=== PATIENT | male | born 1950 | race Caucasian/White ===

== ENCOUNTER 2022-02-13 20:04 | Inpatient (IN) ==
[2022-02-13] MEDS ORDERED: ROCURONIUM 100 MG/10 ML VIAL IV ONE (23:53)
[2022-02-13] MEDS ORDERED: ETOMIDATE 20 MG/10 ML VIAL IV ONE (23:53)
[2022-02-14] MEDS ORDERED: ALBUTEROL/IPRATROPIUM 3 ML NEB RESP TX PRN (00:06)
[2022-02-14] MEDS ORDERED: VANCOMYCIN INJ 1,000 MG in SODIUM CHLORIDE 0.9% 250 ML IV ONE (00:29)
[2022-02-14] MEDS ORDERED: SODIUM CHLORIDE 0.9% 1,000 ML IV ONE (00:30)
[2022-02-14] MEDS ORDERED: METOPROLOL TARTRATE 5 MG/5 ML VIAL IV ONE (00:55)
[2022-02-14] MEDS ORDERED: MEROPENEM 500 MG in SODIUM CHLORIDE 0.9% 100 ML IV SCH (01:00)
[2022-02-14] MEDS ORDERED: ONDANSETRON 4 MG/2 ML VIAL IV PRN (01:11)
[2022-02-14] MEDS ORDERED: MAGNESIUM SULF RIDER 4 GM/100 ML PREMIX IV PRN (01:13)
[2022-02-14 01:32] LABS: Basophils % 0.1 % (0.0-0.8); Hematocrit 29.6 VOL% (42.0-52.0); Hemoglobin 9.2 GM/DL (14.0-18.0); Immature Granulocytes % 0.9 %; Immature Granulocytes Absolute 0.16 #; Lymphocytes # 0.6 10*3/uL (1.4-4.0); Lymphocytes % 3.4 % (21.2-54.2); Mean Corpuscular HGB Conc 31.1 GM/DL (32-36); Mean Corpuscular Volume 92.2 FL (87-102); Mean Platelet Volume 11.3 FL (9.6-12.0); Monocytes % 10.9 % (1.7-12.7); Neutrophils % 84.7 % (38.7-73.9); Platelet Count 198 T/CUMM (130-400); Red Blood Count 3.21 MC/CUMM (3.8-5.5); Red Cell Distribution Width 22.4 % (9.3-17.3); White Blood Count 18.2 T/CUMM (4-12)
[2022-02-14 01:32] LABS: Arterial Base Excess iSTAT -6 MMOL/L (-2.5-2.5); Arterial Bicarbonate iSTAT 19.4 MMOL/L (20-26); Arterial O2 Saturation iSTAT 96 % (95-100); Arterial PCO2 iSTAT 38 MM HG (35-48); Arterial PO2 iSTAT 92 MM HG (80-95); Arterial Total CO2 iSTAT 21 MMO/L (23-27); Arterial pH iSTAT 7.313 (7.35-7.45)
[2022-02-14 01:54] LABS: INR 1.9; Lymphocytes 1 % (20-55); PT Patient Result 19.8 SECS (10.1-12.1); Partial Thromboplastin Time 54.4 SECS (23.7-32.9); Platelet Estimate Adequate; Total Cells Counted 100
[2022-02-14 01:55] LABS: Burr Cells Few
[2022-02-14 01:56] LABS: Polychromasia Slight
[2022-02-14 01:56] LABS: Albumin 1.9 G/DL (3.4-5.0); Bilirubin,Total 4.2 MG/DL (0.20-1.00); Calcium 8.1 MG/DL (8.5-10.1); Osmolality,Calculated 278.2 MOS/KG (273-304); Potassium 3.5 MMOL/L (3.5-5.1); Total Protein 6.9 G/DL (6.4-8.2)
[2022-02-14 01:59] LABS: Lactic Acid 6.8 MMOL/L (0.4-2.0)
[2022-02-14 02:01] LABS: CKMB % 3.09 %
[2022-02-14 02:08] LABS: Bacteria,Urine Occasional /HPF (Few); Bilirubin,Urine Moderate mg/dL (Negative); Blood, Urine Large mg/dL (Negative); Glucose,Urine (UA) Negative (Negative); Hyaline Casts,Urine 11 /LPF (0-3); Ketones,Urine Trace mg/dL (Negative); Mucus,Urine Occasional /LPF (Occasional); Nitrite,Urine Negative (Negative); Protein,Urine 100 mg/dL (Negative); RBC,Urine 897 /HPF (0-4); Squamous Epithelial Cell,Urine Occasional /HPF (0-10); Urine Appearance Clear (Clear); Urine Color Dark Yellow (Yellow); Urine Specific Gravity >= 1.030 (1.001-1.035); Urine pH 5.5 (4.5-8.0)
[2022-02-14] MEDS: MEROPENEM 500 MG in SODIUM CHLORIDE 0.9% 100 ML IV SCH ×3 (02:12→16:55)
[2022-02-14] MEDS: SODIUM CHLORIDE 0.9% 1,000 ML IV SCH ×2 (02:12→12:05)
[2022-02-14 03:23] LABS: Arterial Base Excess iSTAT -5 MMOL/L (-2.5-2.5); Arterial Bicarbonate iSTAT 21.5 MMOL/L (20-26); Arterial O2 Saturation iSTAT 100 % (95-100); Arterial PCO2 iSTAT 45 MM HG (35-48); Arterial PO2 iSTAT 306 MM HG (80-95); Arterial Total CO2 iSTAT 23 MMO/L (23-27); Arterial pH iSTAT 7.291 (7.35-7.45)
[2022-02-14] MEDS ORDERED: VANCOMYCIN INJ 500 MG in SODIUM CHLORIDE 0.9% 100 ML IV PRN (03:25)
[2022-02-14] MEDS ORDERED: VANCOMYCIN INJ 750 MG in SODIUM CHLORIDE 0.9% 250 ML IV ONE (04:00)
[2022-02-14] MEDS: MAGNESIUM SULF RIDER 2 GM/50 ML PREMIX IV PRN (05:08)
[2022-02-14] MEDS ORDERED: PHYTONADIONE 10 MG/1 ML AMP SUBCUT ONE (06:30)
[2022-02-14] MEDS: ALBUTEROL/IPRATROPIUM 3 ML NEB RESP TX SCH ×3 (07:24→19:24)
[2022-02-14] MEDS ORDERED: INSULIN REGULAR 100 UNIT/ML SUBCUT SCH (07:30)
[2022-02-14] MEDS ORDERED: NOREPINEPHRINE 4 MG/4 ML VIAL IV ONE (07:48)
[2022-02-14] MEDS: NOREPINEPHRINE 8 MG in SODIUM CHLORIDE 0.9% 242 ML IV PRN ×2 (07:50→16:25)
[2022-02-14] MEDS ORDERED: LACTATED RINGERS 500 ML IV ONE (07:50)
[2022-02-14] MEDS ORDERED: HYDROCORTISONE 100 MG VIAL IV ONE (07:51)
[2022-02-14 08:31] LABS: Albumin 1.6 G/DL (3.4-5.0); Bilirubin,Total 3.7 MG/DL (0.20-1.00); Calcium 7.7 MG/DL (8.5-10.1); Osmolality,Calculated 282.1 MOS/KG (273-304); Potassium 3.6 MMOL/L (3.5-5.1); Total Protein 5.9 G/DL (6.4-8.2)
[2022-02-14 08:42] LABS: Basophils % 0.1 % (0.0-0.8); Hematocrit 25.3 VOL% (42.0-52.0); Immature Granulocytes % 0.7 %; Immature Granulocytes Absolute 0.09 #; Lymphocytes # 0.6 10*3/uL (1.4-4.0); Lymphocytes % 4.4 % (21.2-54.2); Mean Corpuscular HGB Conc 31.6 GM/DL (32-36); Mean Corpuscular Volume 90.4 FL (87-102); Mean Platelet Volume 11.2 FL (9.6-12.0); Monocytes # 1.3 10*3/uL (0.11-0.8); Monocytes % 9.6 % (1.7-12.7); Neutrophils % 85.2 % (38.7-73.9); Platelet Count 162 T/CUMM (130-400); Red Cell Distribution Width 22.2 % (9.3-17.3); White Blood Count 13.5 T/CUMM (4-12)
[2022-02-14 09:00] LABS: Arterial Base Excess iSTAT -4 MMOL/L (-2.5-2.5); Arterial O2 Saturation iSTAT 96 % (95-100); Arterial PCO2 iSTAT 28 MM HG (35-48); Arterial PO2 iSTAT 74 MM HG (80-95); Arterial Total CO2 iSTAT 20 MMO/L (23-27); Arterial pH iSTAT 7.442 (7.35-7.45)
[2022-02-14 09:02] LABS: Hypochromia Slight; Lymphocytes 1 % (20-55); Microcytosis Slight; Platelet Estimate Adequate; Total Cells Counted 100
[2022-02-14] MEDS: INSULIN REGULAR 100 UNIT/ML SUBCUT SCH ×2 (12:05→18:10)
[2022-02-14] MEDS: HYDROCORTISONE 100 MG VIAL IV SCH ×2 (12:05→16:55)
[2022-02-14] MEDS ORDERED: LACTATED RINGERS 1,000 ML IV ONE (13:37)
[2022-02-14] MEDS: metroNIDAZOLE INJ 500 MG/100 ML PREMIX IV SCH ×2 (14:00→21:55)
[2022-02-14 16:22] LABS: Osmolality,Calculated 285.8 MOS/KG (273-304); Potassium 3.4 MMOL/L (3.5-5.1)
[2022-02-14] MEDS: ENOXAPARIN 80 MG/0.8 ML SYRINGE SUBCUT SCH (18:10)
[2022-02-14] MEDS: SODIUM BICARB INJ 100 MEQ in STERILE WATER INJ 1,000 ML IV SCH (18:10)
[2022-02-14] MEDS: FAMOTIDINE 20 MG TABLET PO SCH ×2 (18:15→21:55)
[2022-02-14] MEDS: ZINC OXIDE PASTE 113 GM TUBE TOP SCH (21:08)
[2022-02-15] MEDS: ALBUTEROL/IPRATROPIUM 3 ML NEB RESP TX SCH ×4 (00:11→19:22)
[2022-02-15] MEDS: HYDROCORTISONE 100 MG VIAL IV SCH ×4 (01:08→18:10)
[2022-02-15] MEDS: INSULIN REGULAR 100 UNIT/ML SUBCUT SCH ×4 (01:08→18:10)
[2022-02-15] MEDS: MEROPENEM 500 MG in SODIUM CHLORIDE 0.9% 100 ML IV SCH ×3 (01:09→16:15)
[2022-02-15] MEDS: SODIUM BICARB INJ 100 MEQ in STERILE WATER INJ 1,000 ML IV SCH (01:26)
[2022-02-15] MEDS: NOREPINEPHRINE 8 MG in SODIUM CHLORIDE 0.9% 242 ML IV PRN (01:40)
[2022-02-15] MEDS: FAMOTIDINE 20 MG TABLET PO SCH (02:31)
[2022-02-15 04:07] LABS: Hematocrit 20.8 VOL% (42.0-52.0); Hemoglobin 6.9 GM/DL (14.0-18.0); Immature Granulocytes % 0.7 %; Immature Granulocytes Absolute 0.06 #; Lymphocytes # 0.3 10*3/uL (1.4-4.0); Lymphocytes % 3.2 % (21.2-54.2); Mean Corpuscular HGB Conc 33.2 GM/DL (32-36); Mean Platelet Volume 10.7 FL (9.6-12.0); Monocytes # 0.8 10*3/uL (0.11-0.8); Monocytes % 8.6 % (1.7-12.7); Neutrophils % 87.5 % (38.7-73.9); Platelet Count 148 T/CUMM (130-400); Red Blood Count 2.39 MC/CUMM (3.8-5.5); Red Cell Distribution Width 22.1 % (9.3-17.3); White Blood Count 8.9 T/CUMM (4-12)
[2022-02-15 04:14] LABS: INR 1.9; PT Patient Result 19.8 SECS (10.1-12.1)
[2022-02-15 04:33] LABS: Albumin 1.6 G/DL (3.4-5.0); Bilirubin,Total 4.5 MG/DL (0.20-1.00); Calcium 7.2 MG/DL (8.5-10.1); Osmolality,Calculated 278.2 MOS/KG (273-304); Potassium 2.7 MMOL/L (3.5-5.1); Total Protein 5.5 G/DL (6.4-8.2)
[2022-02-15] MEDS ORDERED: POTASSIUM BICARB EFFERVESCENT 20 MEQ TAB.EFF PER TUBE PRN (04:47)
[2022-02-15] MEDS ORDERED: POTASSIUM CHLORIDE RIDER 10 MEQ/100 ML PREMIX IV ONE (05:02)
[2022-02-15] MEDS: POTASSIUM CHLORIDE RIDER 10 MEQ/100 ML PREMIX IV PRN ×5 (05:07→09:05)
[2022-02-15] MEDS: metroNIDAZOLE INJ 500 MG/100 ML PREMIX IV SCH ×3 (05:31→21:56)
[2022-02-15] MEDS: ENOXAPARIN 80 MG/0.8 ML SYRINGE SUBCUT SCH (05:32)
[2022-02-15 06:06] LABS: Arterial Base Excess iSTAT 5 MMOL/L (-2.5-2.5); Arterial Bicarbonate iSTAT 26.4 MMOL/L (20-26); Arterial O2 Saturation iSTAT 100 % (95-100); Arterial PCO2 iSTAT 24 MM HG (35-48); Arterial PO2 iSTAT 236 MM HG (80-95); Arterial Total CO2 iSTAT 27 MMO/L (23-27); Arterial pH iSTAT 7.648 (7.35-7.45)
[2022-02-15] MEDS ORDERED: SODIUM CHLORIDE 0.9% 1,000 ML IV PRN (06:23)
[2022-02-15] MEDS: DEXTROSE 5% NACL 0.45% 1,000 ML IV SCH (07:15)
[2022-02-15] MEDS: POTASSIUM CHLORIDE 20 MEQ TABLET PO SCH ×4 (09:10→20:19)
[2022-02-15] MEDS: ASPIRIN EC 81 MG TABLET PO SCH (09:10)
[2022-02-15] MEDS: ZINC OXIDE PASTE 113 GM TUBE TOP SCH ×2 (09:45→20:19)
[2022-02-15] MEDS: VANCOMYCIN INJ 1,500 MG in SODIUM CHLORIDE 0.9% 500 ML IV SCH (10:20)
[2022-02-15 11:43] LABS: Arterial Base Excess iSTAT 2 MMOL/L (-2.5-2.5); Arterial Bicarbonate iSTAT 24.7 MMOL/L (20-26); Arterial O2 Saturation iSTAT 100 % (95-100); Arterial PCO2 iSTAT 31 MM HG (35-48); Arterial PO2 iSTAT 175 MM HG (80-95); Arterial Total CO2 iSTAT 26 MMO/L (23-27); Arterial pH iSTAT 7.509 (7.35-7.45)
[2022-02-15 13:11] LABS: Calcium 6.8 MG/DL (8.5-10.1)
[2022-02-15] MEDS ORDERED: MAGNESIUM SULF RIDER 4 GM/100 ML PREMIX IV ONE (13:51)
[2022-02-15] MEDS ORDERED: CALCIUM GLUCONATE RIDER 2,000 MG/100 ML PREMIX IV ONE (13:52)
[2022-02-15 17:41] LABS: Potassium 3.5 MMOL/L (3.5-5.1)
[2022-02-16] MEDS: ALBUTEROL/IPRATROPIUM 3 ML NEB RESP TX SCH ×4 (00:05→19:02)
[2022-02-16] MEDS: INSULIN REGULAR 100 UNIT/ML SUBCUT SCH ×4 (00:10→17:37)
[2022-02-16] MEDS: HYDROCORTISONE 100 MG VIAL IV SCH ×4 (00:11→21:07)
[2022-02-16] MEDS: MEROPENEM 500 MG in SODIUM CHLORIDE 0.9% 100 ML IV SCH ×3 (00:12→16:38)
[2022-02-16] MEDS: POTASSIUM CHLORIDE 20 MEQ TABLET PO SCH ×3 (00:12→18:15)
[2022-02-16] MEDS: DEXTROSE 5% NACL 0.45% 1,000 ML IV SCH (03:13)
[2022-02-16 04:31] LABS: Basophils % 0.2 % (0.0-0.8); Hematocrit 25.4 VOL% (42.0-52.0); Hemoglobin 8.2 GM/DL (14.0-18.0); Immature Granulocytes % 0.8 %; Immature Granulocytes Absolute 0.09 #; Lymphocytes # 0.3 10*3/uL (1.4-4.0); Lymphocytes % 2.9 % (21.2-54.2); Mean Corpuscular HGB Conc 32.3 GM/DL (32-36); Mean Corpuscular Volume 88.2 FL (87-102); Mean Platelet Volume 11.4 FL (9.6-12.0); Neutrophils % 87.1 % (38.7-73.9); Platelet Count 141 T/CUMM (130-400); Red Blood Count 2.88 MC/CUMM (3.8-5.5); Red Cell Distribution Width 21.2 % (9.3-17.3); White Blood Count 11.2 T/CUMM (4-12)
[2022-02-16 04:59] LABS: Albumin 1.7 G/DL (3.4-5.0); Bilirubin,Total 4.8 MG/DL (0.20-1.00); Calcium 7.9 MG/DL (8.5-10.1); Hypochromia Slight; Lymphocytes 2 % (20-55); Microcytosis Slight; Osmolality,Calculated 288.8 MOS/KG (273-304); Platelet Estimate Adequate; Potassium 4.1 MMOL/L (3.5-5.1); Total Cells Counted 100; Total Protein 5.9 G/DL (6.4-8.2)
[2022-02-16 05:29] LABS: Arterial Base Excess iSTAT 1 MMOL/L (-2.5-2.5); Arterial Bicarbonate iSTAT 24.3 MMOL/L (20-26); Arterial O2 Saturation iSTAT 100 % (95-100); Arterial PCO2 iSTAT 29 MM HG (35-48); Arterial PO2 iSTAT 150 MM HG (80-95); Arterial Total CO2 iSTAT 25 MMO/L (23-27); Arterial pH iSTAT 7.539 (7.35-7.45)
[2022-02-16] MEDS: metroNIDAZOLE INJ 500 MG/100 ML PREMIX IV SCH ×3 (06:00→21:04)
[2022-02-16] MEDS: POTASSIUM CHLORIDE RIDER 10 MEQ/100 ML PREMIX IV PRN (06:01)
[2022-02-16] MEDS ORDERED: FUROSEMIDE 40 MG/4 ML VIAL IV ONE ×2 (07:22→21:00)
[2022-02-16] MEDS: ZINC OXIDE PASTE 113 GM TUBE TOP SCH ×2 (08:14→21:05)
[2022-02-16] MEDS: ASPIRIN EC 81 MG TABLET PO SCH (08:14)
[2022-02-16] MEDS: INSULIN GLARGINE 100 UNIT/ML SUBCUT SCH ×2 (08:43→08:44)
[2022-02-16] MEDS: NOREPINEPHRINE 8 MG in SODIUM CHLORIDE 0.9% 242 ML IV PRN (08:44)
[2022-02-16] MEDS: MORPHINE 2 MG/1 ML SYRINGE IV PRN ×2 (09:05→13:22)
[2022-02-16] MEDS: VANCOMYCIN INJ 1,500 MG in SODIUM CHLORIDE 0.9% 500 ML IV SCH (11:13)
[2022-02-16] MEDS: METOCLOPRAMIDE 10 MG/2 ML VIAL IV SCH ×2 (11:55→17:36)
[2022-02-16] MEDS: PANTOPRAZOLE 40 MG VIAL IV SCH (13:22)
[2022-02-16 13:35] LABS: Calcium 8.1 MG/DL (8.5-10.1); Osmolality,Calculated 282.8 MOS/KG (273-304); Phosphorous 1.5 MG/DL (2.5-4.9); Potassium 3.7 MMOL/L (3.5-5.1)
[2022-02-16 14:59] LABS: Arterial Base Excess iSTAT 4 MMOL/L (-2.5-2.5); Arterial Bicarbonate iSTAT 27.4 MMOL/L (20-26); Arterial O2 Saturation iSTAT 99 % (95-100); Arterial PCO2 iSTAT 35 MM HG (35-48); Arterial PO2 iSTAT 149 MM HG (80-95); Arterial Total CO2 iSTAT 28 MMO/L (23-27); Arterial pH iSTAT 7.508 (7.35-7.45)
[2022-02-16] MEDS: POTASSIUM PHOSPHATE 30 MMOL in SODIUM CHLORIDE 0.9% 250 ML IV SCH ×2 (15:41→21:43)
[2022-02-16] MEDS: LEVOFLOXACIN 750 MG TABLET PER TUBE SCH (18:14)
[2022-02-16] MEDS: VANCOMYCIN 50 MG/ML 60 ML/BOTTLE PO SCH (21:43)
[2022-02-17] MEDS: ALBUTEROL/IPRATROPIUM 3 ML NEB RESP TX SCH ×4 (00:02→19:07)
[2022-02-17] MEDS: METOCLOPRAMIDE 10 MG/2 ML VIAL IV SCH ×5 (00:46→23:49)
[2022-02-17] MEDS: INSULIN REGULAR 100 UNIT/ML SUBCUT SCH ×5 (00:46→23:52)
[2022-02-17] MEDS: VANCOMYCIN 50 MG/ML 60 ML/BOTTLE PO SCH ×4 (03:24→20:27)
[2022-02-17 03:34] LABS: Arterial Base Excess iSTAT 3 MMOL/L (-2.5-2.5); Arterial Bicarbonate iSTAT 27.6 MMOL/L (20-26); Arterial O2 Saturation iSTAT 99 % (95-100); Arterial PCO2 iSTAT 40 MM HG (35-48); Arterial PO2 iSTAT 122 MM HG (80-95); Arterial Total CO2 iSTAT 29 MMO/L (23-27); Arterial pH iSTAT 7.449 (7.35-7.45)
[2022-02-17 05:26] LABS: Basophils % 0.2 % (0.0-0.8); Hematocrit 23.8 VOL% (42.0-52.0); Hemoglobin 7.6 GM/DL (14.0-18.0); Immature Granulocytes % 1.9 %; Immature Granulocytes Absolute 0.19 #; Lymphocytes # 0.4 10*3/uL (1.4-4.0); Lymphocytes % 3.9 % (21.2-54.2); Mean Corpuscular HGB Conc 31.9 GM/DL (32-36); Mean Corpuscular Volume 89.5 FL (87-102); Mean Platelet Volume 11.1 FL (9.6-12.0); Platelet Count 109 T/CUMM (130-400); Red Blood Count 2.66 MC/CUMM (3.8-5.5); Red Cell Distribution Width 21.1 % (9.3-17.3); White Blood Count 10.2 T/CUMM (4-12)
[2022-02-17 05:41] LABS: INR 1.5; PT Patient Result 16.3 SECS (10.1-12.1); Partial Thromboplastin Time 40.8 SECS (23.7-32.9)
[2022-02-17] MEDS: metroNIDAZOLE INJ 500 MG/100 ML PREMIX IV SCH ×3 (05:52→21:03)
[2022-02-17 05:53] LABS: Albumin 1.6 G/DL (3.4-5.0); Bilirubin,Total 3.8 MG/DL (0.20-1.00); Calcium 7.9 MG/DL (8.5-10.1); Osmolality,Calculated 289.5 MOS/KG (273-304); Potassium 4.7 MMOL/L (3.5-5.1)
[2022-02-17 05:53] LABS: Hypochromia Slight; Lymphocytes 1 % (20-55); Total Cells Counted 100
[2022-02-17 05:54] LABS: Microcytosis Slight; Ovalocytes Slight; Polychromasia Slight; Target Cells Slight
[2022-02-17] MEDS ORDERED: SODIUM CHLORIDE 0.9% 1,000 ML IV PRN (06:30)
[2022-02-17] MEDS: ZINC OXIDE PASTE 113 GM TUBE TOP SCH ×2 (08:05→20:27)
[2022-02-17] MEDS: PANTOPRAZOLE 40 MG VIAL IV SCH (08:31)
[2022-02-17] MEDS: ASPIRIN EC 81 MG TABLET PO SCH (08:31)
[2022-02-17] MEDS ORDERED: FUROSEMIDE 40 MG/4 ML VIAL IV SCH (09:00)
[2022-02-17] MEDS: MORPHINE 2 MG/1 ML SYRINGE IV PRN ×2 (09:06→12:31)
[2022-02-17] MEDS: HYDROCORTISONE 100 MG VIAL IV SCH ×2 (09:28→20:23)
[2022-02-17] MEDS: INSULIN GLARGINE 100 UNIT/ML SUBCUT SCH (09:28)
[2022-02-17] MEDS: LEVOFLOXACIN 750 MG TABLET PER TUBE SCH (17:29)
[2022-02-18] MEDS: ALBUTEROL/IPRATROPIUM 3 ML NEB RESP TX SCH ×4 (00:07→19:25)
[2022-02-18] MEDS: VANCOMYCIN 50 MG/ML 60 ML/BOTTLE PO SCH ×4 (03:03→21:14)
[2022-02-18 03:41] LABS: Arterial Base Excess iSTAT 6 MMOL/L (-2.5-2.5); Arterial Bicarbonate iSTAT 29.9 MMOL/L (20-26); Arterial O2 Saturation iSTAT 99 % (95-100); Arterial PCO2 iSTAT 41 MM HG (35-48); Arterial PO2 iSTAT 132 MM HG (80-95); Arterial Total CO2 iSTAT 31 MMO/L (23-27); Arterial pH iSTAT 7.471 (7.35-7.45)
[2022-02-18 04:43] LABS: Basophils % 0.2 % (0.0-0.8); Hemoglobin 9.6 GM/DL (14.0-18.0); Immature Granulocytes % 4.4 %; Immature Granulocytes Absolute 0.44 #; Lymphocytes # 0.3 10*3/uL (1.4-4.0); Lymphocytes % 3.1 % (21.2-54.2); Mean Corpuscular Volume 90.4 FL (87-102); Mean Platelet Volume 11.4 FL (9.6-12.0); Monocytes # 1.2 10*3/uL (0.11-0.8); Monocytes % 11.7 % (1.7-12.7); Neutrophils % 80.6 % (38.7-73.9); Platelet Count 86 T/CUMM (130-400); Red Blood Count 3.32 MC/CUMM (3.8-5.5); Red Cell Distribution Width 19.9 % (9.3-17.3)
[2022-02-18 04:47] LABS: Albumin 1.7 G/DL (3.4-5.0); Bilirubin,Total 3.6 MG/DL (0.20-1.00); Calcium 8.1 MG/DL (8.5-10.1); Osmolality,Calculated 297.1 MOS/KG (273-304); Potassium 4.4 MMOL/L (3.5-5.1); Total Protein 6.3 G/DL (6.4-8.2)
[2022-02-18 04:50] LABS: High Sensitive Troponin I* 5144.7 ng/L (0-78)
[2022-02-18] MEDS: metroNIDAZOLE INJ 500 MG/100 ML PREMIX IV SCH ×3 (05:02→21:00)
[2022-02-18 05:12] LABS: Lymphocytes 3 % (20-55); Total Cells Counted 100
[2022-02-18 05:13] LABS: Platelet Estimate Decreased
[2022-02-18] MEDS: INSULIN REGULAR 100 UNIT/ML SUBCUT SCH ×3 (06:22→17:50)
[2022-02-18] MEDS: METOCLOPRAMIDE 10 MG/2 ML VIAL IV SCH ×3 (06:25→17:50)
[2022-02-18] MEDS: MAGNESIUM SULF RIDER 2 GM/50 ML PREMIX IV PRN (07:05)
[2022-02-18] MEDS: ALBUTEROL 2.5 MG/3 ML NEB RESP TX PRN ×2 (07:33→13:35)
[2022-02-18] MEDS: ZINC OXIDE PASTE 113 GM TUBE TOP SCH ×2 (07:40→21:25)
[2022-02-18] MEDS: FUROSEMIDE 40 MG/4 ML VIAL IV SCH ×2 (08:35→15:50)
[2022-02-18] MEDS: PANTOPRAZOLE 40 MG VIAL IV SCH (08:35)
[2022-02-18] MEDS: HYDROCORTISONE 100 MG VIAL IV SCH ×2 (08:35→20:59)
[2022-02-18] MEDS: INSULIN GLARGINE 100 UNIT/ML SUBCUT SCH (09:25)
[2022-02-18] MEDS: LEVOFLOXACIN 750 MG TABLET PER TUBE SCH (17:50)
[2022-02-18] MEDS ORDERED: IPRATROPIUM 500 MCG/2.5 ML NEB RESP TX ONE (19:10)
[2022-02-19] MEDS: INSULIN REGULAR 100 UNIT/ML SUBCUT SCH ×5 (00:05→21:46)
[2022-02-19] MEDS ORDERED: IPRATROPIUM 500 MCG/2.5 ML NEB RESP TX ONE ×3 (00:05→19:09)
[2022-02-19] MEDS: ALBUTEROL/IPRATROPIUM 3 ML NEB RESP TX SCH ×4 (00:18→19:20)
[2022-02-19] MEDS: METOCLOPRAMIDE 10 MG/2 ML VIAL IV SCH ×4 (01:38→18:30)
[2022-02-19] MEDS: VANCOMYCIN 50 MG/ML 60 ML/BOTTLE PO SCH ×4 (03:40→21:46)
[2022-02-19 03:57] LABS: Arterial Base Excess iSTAT 10 MMOL/L (-2.5-2.5); Arterial Bicarbonate iSTAT 34.6 MMOL/L (20-26); Arterial O2 Saturation iSTAT 99 % (95-100); Arterial PCO2 iSTAT 44 MM HG (35-48); Arterial PO2 iSTAT 128 MM HG (80-95); Arterial Total CO2 iSTAT 36 MMO/L (23-27)
[2022-02-19 05:08] LABS: Basophils % 0.4 % (0.0-0.8); Eosinophils % 0.2 % (0.00-10.9); Hematocrit 33.8 VOL% (42.0-52.0); Hemoglobin 10.7 GM/DL (14.0-18.0); Immature Granulocytes % 5.4 %; Immature Granulocytes Absolute 0.59 #; Lymphocytes # 0.3 10*3/uL (1.4-4.0); Lymphocytes % 2.7 % (21.2-54.2); Mean Corpuscular HGB Conc 31.7 GM/DL (32-36); Mean Corpuscular Volume 91.1 FL (87-102); Mean Platelet Volume 12.6 FL (9.6-12.0); Monocytes # 1.1 10*3/uL (0.11-0.8); Neutrophils % 81.3 % (38.7-73.9); Red Blood Count 3.71 MC/CUMM (3.8-5.5); Red Cell Distribution Width 20.5 % (9.3-17.3)
[2022-02-19 05:09] LABS: Platelet Count 83 T/CUMM (130-400)
[2022-02-19 05:30] LABS: Albumin 1.8 G/DL (3.4-5.0); Calcium 8.4 MG/DL (8.5-10.1); Osmolality,Calculated 304.7 MOS/KG (273-304); Potassium 3.9 MMOL/L (3.5-5.1)
[2022-02-19] MEDS: metroNIDAZOLE INJ 500 MG/100 ML PREMIX IV SCH ×3 (05:45→21:45)
[2022-02-19 06:33] LABS: Hypochromia Slight; Lymphocytes 4 % (20-55); Ovalocytes Slight; Platelet Estimate Decreased; Total Cells Counted 100
[2022-02-19] MEDS: HYDROCORTISONE 100 MG VIAL IV SCH (07:30)
[2022-02-19] MEDS: FUROSEMIDE 40 MG/4 ML VIAL IV SCH (07:30)
[2022-02-19] MEDS: PANTOPRAZOLE 40 MG VIAL IV SCH (07:35)
[2022-02-19] MEDS: ZINC OXIDE PASTE 113 GM TUBE TOP SCH ×2 (07:45→21:46)
[2022-02-19] MEDS: POTASSIUM CHLORIDE 20 MEQ TABLET PO SCH ×3 (07:55→16:55)
[2022-02-19] MEDS ORDERED: DIGOXIN 0.5 MG/2 ML AMP IV ONE ×2 (08:24→08:50)
[2022-02-19] MEDS: INSULIN GLARGINE 100 UNIT/ML SUBCUT SCH (08:45)
[2022-02-19] MEDS: ENOXAPARIN 80 MG/0.8 ML SYRINGE SUBCUT SCH ×2 (09:15→21:45)
[2022-02-19] MEDS ORDERED: AMIODARONE INJ 150 MG in DEXTROSE 5% 100 ML IV ONE (10:18)
[2022-02-19] MEDS ORDERED: PHENOL 1.4% THROAT SPRAY 177 ML BOTTLE PO PRN (10:20)
[2022-02-19] MEDS ORDERED: NOREPINEPHRINE DRIP 8 MG/250 ML PREMIX IV PRN (11:35)
[2022-02-19] MEDS ORDERED: NOREPINEPHRINE 8 MG in SODIUM CHLORIDE 0.9% 242 ML IV PRN (11:37)
[2022-02-19] MEDS ORDERED: AMIODARONE INJ 450 MG in DEXTROSE 5% 241 ML IV SCH ×2 (12:00→18:00)
[2022-02-19] MEDS: LEVOFLOXACIN 750 MG TABLET PER TUBE SCH (18:30)
[2022-02-19] MEDS ORDERED: HYDROCORTISONE 100 MG VIAL IV SCH (21:00)
[2022-02-20] MEDS: ALBUTEROL/IPRATROPIUM 3 ML NEB RESP TX SCH ×5 (00:43→23:57)
[2022-02-20] MEDS: METOCLOPRAMIDE 10 MG/2 ML VIAL IV SCH ×5 (00:58→23:49)
[2022-02-20] MEDS: VANCOMYCIN 50 MG/ML 60 ML/BOTTLE PO SCH ×3 (03:14→21:26)
[2022-02-20 03:47] LABS: Basophils % 0.2 % (0.0-0.8); Hematocrit 36.8 VOL% (42.0-52.0); Hemoglobin 11.6 GM/DL (14.0-18.0); Immature Granulocytes % 2.8 %; Immature Granulocytes Absolute 0.37 #; Lymphocytes # 0.4 10*3/uL (1.4-4.0); Lymphocytes % 3.3 % (21.2-54.2); Mean Corpuscular HGB Conc 31.5 GM/DL (32-36); Mean Corpuscular Volume 92.2 FL (87-102); Mean Platelet Volume 11.3 FL (9.6-12.0); Monocytes # 1.3 10*3/uL (0.11-0.8); Monocytes % 9.6 % (1.7-12.7); Neutrophils % 84.1 % (38.7-73.9); Platelet Count 90 T/CUMM (130-400); Red Blood Count 3.99 MC/CUMM (3.8-5.5); Red Cell Distribution Width 20.9 % (9.3-17.3); White Blood Count 13.1 T/CUMM (4-12)
[2022-02-20 04:02] LABS: Albumin 1.8 G/DL (3.4-5.0); Bilirubin,Total 4.2 MG/DL (0.20-1.00); Calcium 9.3 MG/DL (8.5-10.1); Osmolality,Calculated 303.4 MOS/KG (273-304); Potassium 4.8 MMOL/L (3.5-5.1); Total Protein 6.8 G/DL (6.4-8.2)
[2022-02-20 04:08] LABS: Hypochromia Slight; Lymphocytes 3 % (20-55); Platelet Estimate Decreased; Total Cells Counted 100
[2022-02-20 04:09] LABS: Target Cells Slight
[2022-02-20 04:14] LABS: Arterial Base Excess iSTAT 10 MMOL/L (-2.5-2.5); Arterial Bicarbonate iSTAT 33.6 MMOL/L (20-26); Arterial O2 Saturation iSTAT 97 % (95-100); Arterial PCO2 iSTAT 42 MM HG (35-48); Arterial PO2 iSTAT 86 MM HG (80-95); Arterial Total CO2 iSTAT 35 MMO/L (23-27); Arterial pH iSTAT 7.507 (7.35-7.45)
[2022-02-20] MEDS: metroNIDAZOLE INJ 500 MG/100 ML PREMIX IV SCH (05:45)
[2022-02-20] MEDS ORDERED: DIGOXIN 0.5 MG/2 ML AMP IV ONE (07:36)
[2022-02-20] MEDS: INSULIN REGULAR 100 UNIT/ML SUBCUT SCH ×4 (08:19→20:08)
[2022-02-20] MEDS: HYDROCORTISONE 10 MG TABLET PO SCH ×2 (08:22→21:26)
[2022-02-20] MEDS: PANTOPRAZOLE 40 MG VIAL IV SCH (08:22)
[2022-02-20] MEDS: METOPROLOL TARTRATE 25 MG TABLET PO SCH ×2 (08:22→21:26)
[2022-02-20] MEDS: ENOXAPARIN 80 MG/0.8 ML SYRINGE SUBCUT SCH ×2 (08:23→21:27)
[2022-02-20] MEDS: ZINC OXIDE PASTE 113 GM TUBE TOP SCH ×2 (08:23→21:27)
[2022-02-20] MEDS: SPIRONOLACTONE 100 MG TABLET PO SCH (09:40)
[2022-02-20] MEDS: INSULIN GLARGINE 100 UNIT/ML SUBCUT SCH (09:40)
[2022-02-20] MEDS: FUROSEMIDE 40 MG/4 ML VIAL IV SCH (09:41)
[2022-02-20] MEDS: LEVOFLOXACIN 750 MG TABLET PER TUBE SCH (19:10)
[2022-02-21] MEDS: VANCOMYCIN 50 MG/ML 60 ML/BOTTLE PO SCH ×3 (02:02→17:42)
[2022-02-21 03:20] LABS: Basophils % 0.1 % (0.0-0.8); Hematocrit 38.7 VOL% (42.0-52.0); Hemoglobin 11.9 GM/DL (14.0-18.0); Immature Granulocytes % 1.9 %; Immature Granulocytes Absolute 0.27 #; Lymphocytes # 0.5 10*3/uL (1.4-4.0); Lymphocytes % 3.6 % (21.2-54.2); Mean Corpuscular HGB Conc 30.7 GM/DL (32-36); Mean Corpuscular Volume 94.4 FL (87-102); Mean Platelet Volume 12.1 FL (9.6-12.0); Monocytes # 1.2 10*3/uL (0.11-0.8); Monocytes % 8.4 % (1.7-12.7); Platelet Count 88 T/CUMM (130-400); Red Cell Distribution Width 21.1 % (9.3-17.3); White Blood Count 14.6 T/CUMM (4-12)
[2022-02-21 03:31] LABS: Osmolality,Calculated 308.4 MOS/KG (273-304); Potassium 4.1 MMOL/L (3.5-5.1)
[2022-02-21 03:51] LABS: Lymphocytes 2 % (20-55); Platelet Estimate Decreased; Total Cells Counted 100
[2022-02-21] MEDS: METOCLOPRAMIDE 10 MG/2 ML VIAL IV SCH ×3 (05:15→17:42)
[2022-02-21] MEDS: ALBUTEROL/IPRATROPIUM 3 ML NEB RESP TX SCH ×2 (07:04→12:24)
[2022-02-21] MEDS: ENOXAPARIN 80 MG/0.8 ML SYRINGE SUBCUT SCH ×2 (08:10→21:34)
[2022-02-21] MEDS: METOPROLOL TARTRATE 25 MG TABLET PO SCH ×2 (08:10→21:34)
[2022-02-21] MEDS: HYDROCORTISONE 10 MG TABLET PO SCH ×2 (08:10→21:34)
[2022-02-21] MEDS: SPIRONOLACTONE 100 MG TABLET PO SCH (08:10)
[2022-02-21] MEDS: FUROSEMIDE 40 MG/4 ML VIAL IV SCH (08:10)
[2022-02-21] MEDS: ZINC OXIDE PASTE 113 GM TUBE TOP SCH ×2 (08:11→22:04)
[2022-02-21] MEDS: PANTOPRAZOLE 40 MG VIAL IV SCH (08:11)
[2022-02-21] MEDS: INSULIN GLARGINE 100 UNIT/ML SUBCUT SCH (08:23)
[2022-02-21] MEDS: INSULIN REGULAR 100 UNIT/ML SUBCUT SCH ×4 (08:24→22:02)
[2022-02-21] MEDS: IPRATROPIUM 500 MCG/2.5 ML NEB RESP TX SCH ×2 (14:39→23:20)
[2022-02-21] MEDS: LEVALBUTEROL 1.25 MG/3 ML NEB RESP TX SCH ×2 (14:39→23:20)
[2022-02-22] MEDS: METOCLOPRAMIDE 10 MG/2 ML VIAL IV SCH ×5 (00:53→23:53)
[2022-02-22] MEDS: VANCOMYCIN 50 MG/ML 60 ML/BOTTLE PO SCH ×4 (00:54→18:11)
[2022-02-22 04:54] LABS: Basophils % 0.1 % (0.0-0.8); Eosinophils % 0.1 % (0.00-10.9); Hematocrit 37.2 VOL% (42.0-52.0); Hemoglobin 11.7 GM/DL (14.0-18.0); Immature Granulocytes % 1.4 %; Lymphocytes # 0.4 10*3/uL (1.4-4.0); Lymphocytes % 2.5 % (21.2-54.2); Mean Corpuscular HGB Conc 31.5 GM/DL (32-36); Mean Corpuscular Volume 94.4 FL (87-102); Mean Platelet Volume 12.5 FL (9.6-12.0); Monocytes # 1.1 10*3/uL (0.11-0.8); Monocytes % 8.1 % (1.7-12.7); NRBC # 0.02 10*3/uL; Neutrophils % 87.8 % (38.7-73.9); Platelet Count 75 T/CUMM (130-400); Red Blood Count 3.94 MC/CUMM (3.8-5.5); Red Cell Distribution Width 21.1 % (9.3-17.3); White Blood Count 13.9 T/CUMM (4-12)
[2022-02-22 05:15] LABS: Potassium 3.5 MMOL/L (3.5-5.1)
[2022-02-22 05:16] LABS: Calcium 8.7 MG/DL (8.5-10.1)
[2022-02-22 05:18] LABS: Lymphocytes 3 % (20-55); Platelet Estimate Decreased; Total Cells Counted 100
[2022-02-22] MEDS: IPRATROPIUM 500 MCG/2.5 ML NEB RESP TX SCH ×3 (06:55→22:47)
[2022-02-22] MEDS: LEVALBUTEROL 1.25 MG/3 ML NEB RESP TX SCH ×3 (06:55→22:47)
[2022-02-22] MEDS: SODIUM CHLORIDE 0.45% 1,000 ML IV SCH ×2 (08:28→21:00)
[2022-02-22] MEDS: HYDROCORTISONE 10 MG TABLET PO SCH ×2 (08:29→21:05)
[2022-02-22] MEDS: FUROSEMIDE 40 MG TABLET PO SCH (08:29)
[2022-02-22] MEDS: ENOXAPARIN 80 MG/0.8 ML SYRINGE SUBCUT SCH (08:29)
[2022-02-22] MEDS: FAMOTIDINE 20 MG TABLET PO SCH ×2 (08:29→21:05)
[2022-02-22] MEDS: METOPROLOL TARTRATE 25 MG TABLET PO SCH ×2 (08:29→20:25)
[2022-02-22] MEDS: INSULIN GLARGINE 100 UNIT/ML SUBCUT SCH (08:42)
[2022-02-22] MEDS: INSULIN REGULAR 100 UNIT/ML SUBCUT SCH ×4 (08:42→21:05)
[2022-02-22] MEDS: ZINC OXIDE PASTE 113 GM TUBE TOP SCH ×2 (08:42→21:05)
[2022-02-22 13:19] LABS: INR 1.9; PT Patient Result 19.7 SECS (10.1-12.1)
[2022-02-22] MEDS: VANCOMYCIN 125 MG CAPSULE PO SCH ×2 (18:17→23:54)
[2022-02-23] MEDS: METOCLOPRAMIDE 10 MG/2 ML VIAL IV SCH ×3 (05:47→17:04)
[2022-02-23] MEDS: VANCOMYCIN 125 MG CAPSULE PO SCH ×3 (05:47→21:17)
[2022-02-23 06:20] LABS: Basophils % 0.1 % (0.0-0.8); Eosinophils % 0.1 % (0.00-10.9); Hematocrit 38.6 VOL% (42.0-52.0); Hemoglobin 12.1 GM/DL (14.0-18.0); Immature Granulocytes % 2.3 %; Immature Granulocytes Absolute 0.39 #; Lymphocytes # 0.6 10*3/uL (1.4-4.0); Lymphocytes % 3.8 % (21.2-54.2); Mean Corpuscular HGB Conc 31.3 GM/DL (32-36); Mean Corpuscular Volume 96.5 FL (87-102); Mean Platelet Volume 13.3 FL (9.6-12.0); Monocytes # 1.6 10*3/uL (0.11-0.8); Monocytes % 9.7 % (1.7-12.7); NRBC # 0.02 10*3/uL; Platelet Count 84 T/CUMM (130-400); Red Cell Distribution Width 21.2 % (9.3-17.3); White Blood Count 16.7 T/CUMM (4-12)
[2022-02-23 06:41] LABS: Lymphocytes 2 % (20-55); Platelet Estimate Decreased; Total Cells Counted 100
[2022-02-23 06:42] LABS: Calcium 8.7 MG/DL (8.5-10.1); Potassium 4.1 MMOL/L (3.5-5.1)
[2022-02-23] MEDS: INSULIN REGULAR 100 UNIT/ML SUBCUT SCH ×4 (07:20→21:17)
[2022-02-23] MEDS: LEVALBUTEROL 1.25 MG/3 ML NEB RESP TX SCH ×3 (07:45→23:05)
[2022-02-23] MEDS: IPRATROPIUM 500 MCG/2.5 ML NEB RESP TX SCH ×3 (07:45→23:05)
[2022-02-23] MEDS: ZINC OXIDE PASTE 113 GM TUBE TOP SCH ×2 (08:19→21:01)
[2022-02-23] MEDS: METOPROLOL TARTRATE 25 MG TABLET PO SCH ×2 (09:11→20:52)
[2022-02-23] MEDS: INSULIN GLARGINE 100 UNIT/ML SUBCUT SCH (09:13)
[2022-02-23] MEDS: FUROSEMIDE 40 MG TABLET PO SCH (10:29)
[2022-02-23] MEDS: FAMOTIDINE 20 MG TABLET PO SCH ×2 (10:30→21:17)
[2022-02-23] MEDS: HYDROCORTISONE 10 MG TABLET PO SCH (10:31)
[2022-02-23] MEDS: DEXTROSE 5% 1,000 ML IV SCH (13:24)
[2022-02-23] MEDS: SODIUM CHLORIDE 0.45% 1,000 ML IV SCH (14:21)
[2022-02-24] MEDS: METOCLOPRAMIDE 10 MG/2 ML VIAL IV SCH ×4 (00:13→17:56)
[2022-02-24] MEDS: DEXTROSE 5% 1,000 ML IV SCH (00:41)
[2022-02-24] MEDS: VANCOMYCIN 125 MG CAPSULE PO SCH ×4 (02:11→21:37)
[2022-02-24 05:19] LABS: Basophils % 0.1 % (0.0-0.8); Eosinophils % 0.1 % (0.00-10.9); Hematocrit 38.2 VOL% (42.0-52.0); Hemoglobin 11.9 GM/DL (14.0-18.0); Immature Granulocytes % 0.9 %; Immature Granulocytes Absolute 0.16 #; Lymphocytes # 0.6 10*3/uL (1.4-4.0); Lymphocytes % 3.4 % (21.2-54.2); Mean Corpuscular HGB Conc 31.2 GM/DL (32-36); Mean Platelet Volume 13.8 FL (9.6-12.0); Monocytes # 1.9 10*3/uL (0.11-0.8); Monocytes % 10.3 % (1.7-12.7); NRBC # 0.03 10*3/uL; Neutrophils % 85.2 % (38.7-73.9); Platelet Count 76 T/CUMM (130-400); Red Blood Count 3.98 MC/CUMM (3.8-5.5); Red Cell Distribution Width 21.6 % (9.3-17.3); White Blood Count 18.5 T/CUMM (4-12)
[2022-02-24 05:32] LABS: Calcium 8.8 MG/DL (8.5-10.1); Osmolality,Calculated 318.1 MOS/KG (273-304); Potassium 4.9 MMOL/L (3.5-5.1)
[2022-02-24 06:08] LABS: Hypochromia Slight; Lymphocytes 6 % (20-55); Total Cells Counted 100
[2022-02-24 06:09] LABS: Macrocytosis Slight
[2022-02-24 06:10] LABS: Platelet Estimate Decreased
[2022-02-24] MEDS: LEVALBUTEROL 1.25 MG/3 ML NEB RESP TX SCH ×3 (07:40→23:20)
[2022-02-24] MEDS: IPRATROPIUM 500 MCG/2.5 ML NEB RESP TX SCH ×3 (07:40→23:20)
[2022-02-24] MEDS: ZINC OXIDE PASTE 113 GM TUBE TOP SCH ×2 (10:25→21:37)
[2022-02-24] MEDS: HYDROCORTISONE 10 MG TABLET PO SCH (10:25)
[2022-02-24] MEDS: METOPROLOL TARTRATE 25 MG TABLET PO SCH ×2 (10:25→20:08)
[2022-02-24] MEDS: INSULIN REGULAR 100 UNIT/ML SUBCUT SCH ×4 (10:26→21:37)
[2022-02-24] MEDS: FAMOTIDINE 20 MG TABLET PO SCH ×2 (10:26→21:37)
[2022-02-24] MEDS: INSULIN GLARGINE 100 UNIT/ML SUBCUT SCH (10:28)
[2022-02-24] MEDS: SODIUM CHLORIDE 0.45% 1,000 ML IV SCH ×2 (11:42→21:37)
[2022-02-24] MEDS: ENOXAPARIN 30 MG/0.3 ML SYRINGE SUBCUT SCH (20:10)
[2022-02-25] MEDS: METOCLOPRAMIDE 10 MG/2 ML VIAL IV SCH ×4 (01:01→17:04)
[2022-02-25] MEDS: VANCOMYCIN 125 MG CAPSULE PO SCH ×4 (02:30→21:24)
[2022-02-25 05:23] LABS: Basophils % 0.1 % (0.0-0.8); Eosinophils # 0.1 10*3/uL (0.0-0.87); Eosinophils % 0.3 % (0.00-10.9); Hematocrit 34.7 VOL% (42.0-52.0); Hemoglobin 11.3 GM/DL (14.0-18.0); Lymphocytes # 0.7 10*3/uL (1.4-4.0); Lymphocytes % 3.4 % (21.2-54.2); Mean Corpuscular HGB Conc 32.6 GM/DL (32-36); Mean Corpuscular Volume 92.5 FL (87-102); Monocytes # 2.1 10*3/uL (0.11-0.8); Monocytes % 10.2 % (1.7-12.7); Platelet Count 74 T/CUMM (130-400); Red Blood Count 3.75 MC/CUMM (3.8-5.5); Red Cell Distribution Width 20.7 % (9.3-17.3); White Blood Count 20.8 T/CUMM (4-12)
[2022-02-25 05:35] LABS: Calcium 8.6 MG/DL (8.5-10.1); Potassium 4.3 MMOL/L (3.5-5.1)
[2022-02-25 05:59] LABS: Lymphocytes 9 % (20-55); Platelet Estimate Decreased; Total Cells Counted 100
[2022-02-25] MEDS: IPRATROPIUM 500 MCG/2.5 ML NEB RESP TX SCH ×3 (07:40→23:30)
[2022-02-25] MEDS: LEVALBUTEROL 1.25 MG/3 ML NEB RESP TX SCH ×3 (07:40→23:30)
[2022-02-25 08:00] LABS: INR 1.9; PT Patient Result 20.1 SECS (10.1-12.1)
[2022-02-25] MEDS: INSULIN REGULAR 100 UNIT/ML SUBCUT SCH ×4 (08:43→20:55)
[2022-02-25] MEDS: METOPROLOL TARTRATE 25 MG TABLET PO SCH ×2 (09:49→20:58)
[2022-02-25] MEDS: HYDROCORTISONE 10 MG TABLET PO SCH (09:49)
[2022-02-25] MEDS: ZINC OXIDE PASTE 113 GM TUBE TOP SCH ×2 (09:49→21:27)
[2022-02-25] MEDS: FAMOTIDINE 20 MG TABLET PO SCH ×2 (09:50→21:25)
[2022-02-25] MEDS: INSULIN GLARGINE 100 UNIT/ML SUBCUT SCH (09:50)
[2022-02-25] MEDS ORDERED: ALBUMIN 25% 25 GM/100 ML VIAL IV ONE (13:00)
[2022-02-25] MEDS: SODIUM CHLORIDE 0.45% 1,000 ML IV SCH ×2 (14:13→18:06)
[2022-02-25] MEDS: ENOXAPARIN 30 MG/0.3 ML SYRINGE SUBCUT SCH (21:26)
[2022-02-26] MEDS: METOCLOPRAMIDE 10 MG/2 ML VIAL IV SCH ×4 (00:20→18:03)
[2022-02-26] MEDS: VANCOMYCIN 125 MG CAPSULE PO SCH ×3 (04:15→15:49)
[2022-02-26] MEDS: SODIUM CHLORIDE 0.45% 1,000 ML IV SCH (04:36)
[2022-02-26 07:02] LABS: Osmolality,Calculated 300.2 MOS/KG (273-304); Potassium 4.5 MMOL/L (3.5-5.1)
[2022-02-26 07:07] LABS: Basophils # 0.1 10*3/uL (0.0-0.2); Basophils % 0.2 % (0.0-0.8); Eosinophils # 0.1 10*3/uL (0.0-0.87); Eosinophils % 0.2 % (0.00-10.9); Immature Granulocytes % 1.1 %; Immature Granulocytes Absolute 0.27 #; Lymphocytes # 0.5 10*3/uL (1.4-4.0); Lymphocytes % 1.9 % (21.2-54.2); Mean Corpuscular HGB Conc 30.8 GM/DL (32-36); Mean Platelet Volume 13.4 FL (9.6-12.0); Monocytes % 4.1 % (1.7-12.7); NRBC # 0.02 10*3/uL; Neutrophils % 92.5 % (38.7-73.9); Platelet Count 79 T/CUMM (130-400); Red Blood Count 4.02 MC/CUMM (3.8-5.5); Red Cell Distribution Width 21.3 % (9.3-17.3); White Blood Count 25.4 T/CUMM (4-12)
[2022-02-26] MEDS: IPRATROPIUM 500 MCG/2.5 ML NEB RESP TX SCH ×3 (07:08→22:57)
[2022-02-26] MEDS: LEVALBUTEROL 1.25 MG/3 ML NEB RESP TX SCH ×3 (07:08→22:57)
[2022-02-26 07:28] LABS: Anisocytosis 1+; Band Neutrophils 7 % (0-10); Eosinophils 1 % (0-10); Lymphocytes 2 % (20-55); Metamyelocytes 1 %; Platelet Estimate Decreased; Total Cells Counted 100
[2022-02-26 07:29] LABS: Burr Cells 1+; Macrocytosis 1+
[2022-02-26] MEDS: INSULIN REGULAR 100 UNIT/ML SUBCUT SCH ×4 (08:58→22:56)
[2022-02-26] MEDS: INSULIN GLARGINE 100 UNIT/ML SUBCUT SCH (08:59)
[2022-02-26] MEDS: METOPROLOL TARTRATE 25 MG TABLET PO SCH (08:59)
[2022-02-26] MEDS: HYDROCORTISONE 10 MG TABLET PO SCH (10:42)
[2022-02-26] MEDS: ZINC OXIDE PASTE 113 GM TUBE TOP SCH ×2 (10:42→22:10)
[2022-02-26] MEDS: FAMOTIDINE 20 MG TABLET PO SCH (10:42)
[2022-02-26] MEDS ORDERED: FUROSEMIDE 40 MG/4 ML VIAL IV ONE (11:11)
[2022-02-26] MEDS ORDERED: DEXTROSE 5% NACL 0.45% 1,000 ML IV SCH (11:30)
[2022-02-26] MEDS ORDERED: DEXTROSE 50% 25 GM/50 ML SYRINGE IV ONE (11:31)
[2022-02-26] MEDS ORDERED: ALBUMIN 25% 25 GM/100 ML VIAL IV ONE (12:00)
[2022-02-26 16:24] VITALS: BP 90/58
[2022-02-26] MEDS ORDERED: DEXTROSE 10% 250 ML IV ONE (17:50)
[2022-02-26] MEDS ORDERED: MIDAZOLAM DRIP 100 MG/100 ML PREMIX IV PRN (18:56)
[2022-02-26] MEDS ORDERED: MIDAZOLAM DRIP 100 MG/100 ML PREMIX IV ONE (18:59)
[2022-02-26] MEDS ORDERED: DEXTROSE 10% 1,000 ML IV SCH (19:00)
[2022-02-26] MEDS: DOPamine 800 MG/250 ML PREMIX IV PRN ×2 (19:01→23:40)
[2022-02-26 19:17] LABS: Basophils % 0.1 % (0.0-0.8); Eosinophils % 0.1 % (0.00-10.9); Immature Granulocytes % 0.4 %; Immature Granulocytes Absolute 0.06 #; Lymphocytes # 0.5 10*3/uL (1.4-4.0); Lymphocytes % 3.1 % (21.2-54.2); Mean Corpuscular HGB Conc 30.8 GM/DL (32-36); Mean Corpuscular Volume 97.7 FL (87-102); Mean Platelet Volume 13.7 FL (9.6-12.0); Monocytes # 0.7 10*3/uL (0.11-0.8); Monocytes % 4.5 % (1.7-12.7); NRBC # 0.03 10*3/uL; Neutrophils % 91.8 % (38.7-73.9); Platelet Count 83 T/CUMM (130-400); Red Cell Distribution Width 21.1 % (9.3-17.3); White Blood Count 14.7 T/CUMM (4-12)
[2022-02-26 19:18] LABS: Hematocrit 29.5 VOL% (42.0-52.0); Hemoglobin 9.1 GM/DL (14.0-18.0)
[2022-02-26 19:19] LABS: Red Blood Count 3.02 MC/CUMM (3.8-5.5)
[2022-02-26 19:34] LABS: Alanine Aminotransferase 30 U/L (16-61); Albumin 1.9 G/DL (3.4-5.0); Alkaline Phosphatase 94 U/L (45-117); Aspartate Amino Transferase 238 U/L (0-37); Blood Urea Nitrogen 111 MG/DL (7-18); Calcium 8.5 MG/DL (8.5-10.1); Carbon Dioxide 16 MMOL/L (21-32); Chloride 95 MMOL/L (98-107); Glucose 262 MG/DL (74-106); Osmolality,Calculated 307.5 MOS/KG (273-304); Potassium 4.8 MMOL/L (3.5-5.1); Sodium 132 MMOL/L (136-145); Total Protein 5.6 G/DL (6.4-8.2)
[2022-02-26 19:41] LABS: Band Neutrophils 8 % (0-10); Lymphocytes 2 % (20-55); Platelet Estimate Decreased; Total Cells Counted 100
[2022-02-26 19:42] LABS: Burr Cells 1+
[2022-02-26 19:43] LABS: Acanthocytes Few
[2022-02-26 19:44] LABS: Macrocytosis Slight
[2022-02-26 21:20] LABS: ABG Base Excess -12.6 MMOL/L (-2.5-2.5); ABG HCO3 14.5 MMOL/L (20-26); ABG Oxygen Saturation 94.2 % (95-100); ABG PCO2 35.5 MM HG (35-48); ABG PH 7.216 (7.35-7.45); ABG PO2 93.9 MM HG (80-95); ABG TCO2 13.6 MMOL/L (23-27)
[2022-02-26] MEDS: PANTOPRAZOLE 40 MG VIAL IV SCH (22:36)
[2022-02-26] MEDS: HYDROCORTISONE 100 MG VIAL IV SCH (22:36)
[2022-02-26] MEDS: MEROPENEM 500 MG in SODIUM CHLORIDE 0.9% 100 ML IV SCH (22:37)
[2022-02-26] MEDS ORDERED: SODIUM BICARBONATE 50 MEQ/50 ML VIAL IV ONE (23:08)
[2022-02-27] MEDS ORDERED: SODIUM BICARBONATE 50 MEQ/50 ML VIAL IV ONE (00:10)
[2022-02-27] MEDS: SODIUM BICARB INJ 100 MEQ in DEXTROSE 5% 1,000 ML IV SCH ×2 (00:29→10:52)
[2022-02-27] MEDS: METOCLOPRAMIDE 10 MG/2 ML VIAL IV SCH ×2 (00:39→05:35)
[2022-02-27] MEDS ORDERED: NOREPINEPHRINE DRIP 8 MG/250 ML PREMIX IV PRN (02:14)
[2022-02-27] MEDS ORDERED: NOREPINEPHRINE 4 MG/4 ML VIAL IV ONE (02:16)
[2022-02-27 02:29] LABS: Arterial Bicarbonate iSTAT 18.2 MMOL/L (20-26); Arterial pH iSTAT 7.249 (7.35-7.45)
[2022-02-27] MEDS: DOPamine 800 MG/250 ML PREMIX IV PRN ×3 (02:50→09:29)
[2022-02-27] MEDS: NOREPINEPHRINE 16 MG in SODIUM CHLORIDE 0.9% 234 ML IV PRN ×2 (04:02→07:01)
[2022-02-27 04:14] LABS: ABG Base Excess -10.5 MMOL/L (-2.5-2.5); ABG HCO3 16.1 MMOL/L (20-26); ABG PCO2 34.3 MM HG (35-48); ABG PH 7.267 (7.35-7.45); ABG PO2 88.8 MM HG (80-95); ABG TCO2 14.4 MMOL/L (23-27)
[2022-02-27 04:15] LABS: Hematocrit 31.7 VOL% (42.0-52.0); Hemoglobin 9.7 GM/DL (14.0-18.0)
[2022-02-27 04:23] LABS: Mucus,Urine Occasional /LPF (Occasional); Protein,Urine 100 mg/dL (Negative); RBC,Urine 328 /HPF (0-4); Squamous Epithelial Cell,Urine Occasional /HPF (0-10); Urine Appearance Slightly Cloudy (Clear); Urine Color Dark Yellow (Yellow); Urine Specific Gravity 1.025 (1.001-1.035); Urine pH 5.5 (4.5-8.0)
[2022-02-27 04:24] LABS: Bilirubin,Urine Moderate mg/dL (Negative); Blood, Urine Large mg/dL (Negative); Glucose,Urine (UA) Negative (Negative); Ketones,Urine Trace mg/dL (Negative); Nitrite,Urine Negative (Negative); Urine Urobilinogen 0.2 eU/dL (<2.0)
[2022-02-27] MEDS: HYDROCORTISONE 100 MG VIAL IV SCH (04:33)
[2022-02-27] MEDS: LEVALBUTEROL 1.25 MG/3 ML NEB RESP TX SCH (06:51)
[2022-02-27] MEDS: IPRATROPIUM 500 MCG/2.5 ML NEB RESP TX SCH (06:51)
[2022-02-27 07:17] LABS: Hematocrit 30.9 VOL% (42.0-52.0); Hemoglobin 9.2 GM/DL (14.0-18.0)
[2022-02-27] MEDS: INSULIN REGULAR 100 UNIT/ML SUBCUT SCH (07:34)
[2022-02-27] MEDS: MEROPENEM 500 MG in SODIUM CHLORIDE 0.9% 100 ML IV SCH (07:39)
[2022-02-27] MEDS ORDERED: NOREPINEPHRINE 32 MG in SODIUM CHLORIDE 0.9% 218 ML IV PRN (07:40)
[2022-02-27] MEDS: PANTOPRAZOLE 40 MG VIAL IV SCH (08:07)
[2022-02-27 09:02] LABS: Basophils % 0.1 % (0.0-0.8); Hematocrit 31.1 VOL% (42.0-52.0); Hemoglobin 9.3 GM/DL (14.0-18.0); Immature Granulocytes % 0.6 %; Immature Granulocytes Absolute 0.08 #; Lymphocytes # 0.3 10*3/uL (1.4-4.0); Lymphocytes % 1.9 % (21.2-54.2); Mean Corpuscular HGB Conc 29.9 GM/DL (32-36); Monocytes # 0.6 10*3/uL (0.11-0.8); Monocytes % 4.2 % (1.7-12.7); NRBC # 0.05 10*3/uL; Neutrophils % 93.2 % (38.7-73.9); Platelet Count 81 T/CUMM (130-400); Red Blood Count 3.11 MC/CUMM (3.8-5.5); Red Cell Distribution Width 21.4 % (9.3-17.3); White Blood Count 13.5 T/CUMM (4-12)
[2022-02-27] MEDS ORDERED: SODIUM CHLORIDE 0.9% 1,000 ML IV ONE ×2 (09:22→09:32)
[2022-02-27 09:30] LABS: Calcium 8.9 MG/DL (8.5-10.1); Osmolality,Calculated 303.5 MOS/KG (273-304); Potassium 5.1 MMOL/L (3.5-5.1); Total Protein 5.7 G/DL (6.4-8.2)
[2022-02-27 09:32] LABS: Bilirubin,Total 14.6 MG/DL (0.20-1.00)
[2022-02-27 09:33] LABS: Anisocytosis 2+; Band Neutrophils 43 % (0-10); Burr Cells 2+; Eosinophils 1 % (0-10); Macrocytosis 1+; Metamyelocytes 6 %; Nucleated Red Blood Cells 2 /100 WBC (0-5); Platelet Estimate Decreased; Total Cells Counted 100
[2022-02-27] MEDS ORDERED: ATROPINE 1 MG/10 ML SYRINGE IV ONE ×2 (09:56→10:39)
[2022-02-27] MEDS ORDERED: ATROPINE 1 MG/10 ML SYRINGE ONE (09:57)
[2022-02-27] MEDS ORDERED: VANCOMYCIN INJ 1,500 MG in SODIUM CHLORIDE 0.9% 500 ML IV ONE (10:00)
[2022-02-27] MEDS: ZINC OXIDE PASTE 113 GM TUBE TOP SCH (10:12)
[2022-02-27] MEDS ORDERED: PHENYLEPHRINE DRIP 40 MG/250 ML PREMIX IV ONE (10:27)
[2022-02-27] MEDS ORDERED: PHENYLEPHRINE DRIP 40 MG/250 ML PREMIX IV PRN (10:32)
[2022-02-28] MEDS ORDERED: VANCOMYCIN INJ 1,500 MG in SODIUM CHLORIDE 0.9% 500 ML IV PRN (09:00)
== END 2022-02-27 11:26 | disposition expired | DRG 870 ==
LOC: SUATTDRO 22:55 → N.ICU 22:55 → N.5E 02-22 13:16 → N.CC 02-26 18:50
PROVIDERS: ADMIT Internal Medicine; ATTEND Internal Medicine